=== PATIENT | male | born 1945 | race Caucasian/White ===

== ENCOUNTER 2021-06-30 15:28 | Emergency (ER) | payer MEDICARE, BC ==
[~2021-06-30] VITALS: Ht 188 cm; Wt 104.5 kg
[2021-06-30 15:48] VITALS: BP 115/76
[2021-06-30] MEDS ORDERED: TETanus/Pertussis (Acell)/Diphther VAC/PF (Tdap-Adult) 0.5ml syringe IMVAC ONE (16:25)
[2021-06-30] MEDS ORDERED: LIDOcaine 1% W/epiNEPHrine 1:200,000 10ml vial IJ ONE (16:25)
[2021-06-30] MEDS ORDERED: LIDOcaine 1% w/epiNEPHrine 1:200,000 30ml vial IJ ONE (16:30)
[2021-06-30] MEDS ORDERED: DOXYCYCLINE 100MG CAPSULE PO STA (16:42)
[2021-06-30] MEDS ORDERED: DOXY-11 PO (17:43)
--- NOTE | 2021-06-30 17:45 | NUR ---
Wound to L LL dressed with xeroform, 4x4s, and wrapped with coban.
== END 2021-06-30 19:43 | disposition home or self-care (01) ==
LOC: ER 15:29
DX: S81.812A Laceration without foreign body, left lower leg, initial encounter (principal); Z79.2 Long term (current) use of antibiotics; W29.3XXA Contact with powered garden and outdoor hand tools and machinery, initial encounter; Y93.H2 Activity, gardening and landscaping; Y92.89 Other specified places as the place of occurrence of the external cause; Y99.8 Other external cause status
CPT/HCPCS: 12002; 73590; 82948; 90471; 90715; 99284; J3490; 99283